=== PATIENT | female | born 1995 | race Caucasian/White ===

== ENCOUNTER 2018-05-29 15:15 | Inpatient (IN) | payer OTHER ==
[~2018-05-29] VITALS: Ht 154.9 cm; Wt 69.4 kg
[2018-05-29 15:29] VITALS: BP 123/79
[2018-05-29] MEDS ORDERED: CELEXA10 MG PO (15:32)
[2018-05-29 15:41] LABS: URINE BLOOD 1+ (Negative); URINE CLARITY CLEAR; URINE COLOR YELLOW; URINE GLUCOSE-RANDOM NEGATIVE (Negative); URINE KETONES NEGATIVE (Negative); URINE LEUKOCYTES-REFLEX TRACE (Negative); URINE NITRITE-REFLEX NEGATIVE (Negative); URINE PROTEIN NEGATIVE (Negative); URINE SPECIFIC GRAVITY 1.025 (1.005-1.030)
[2018-05-29 15:43] LABS: ICTOTEST (BILI CONFIRMATORY) Negative (Negative); URINE BILIRUBIN 1+ (Negative)
[2018-05-29 15:45] LABS: MUCUS 4-6 Moderate strn/LPF (None Seen); SQUAMOUS >10 Many /LPF (0-3); URINE WBC-REFLEX 0-5 Rare /HPF (0-5)
[2018-05-29 15:46] LABS: CASTS None Seen /LPF (None Seen); CRYSTALS None Seen /LPF (None Seen); URINE RBC 0-2 Rare /HPF (0-2)
[2018-05-29 15:52] LABS: HEMATOCRIT 40.3 % (37.0-47.0); HEMOGLOBIN 13.5 gm/dL (12.0-15.0); MCH 27.2 pg (26.0-34.0); MCHC 33.6 g/dL (28.0-37.0); MCV 81.1 fL (80.0-100.0); MPV 9.4 fl. (7.2-11.1); NUCLEATED RBCS 0 /100WBC; PLATELET COUNT* 216 thou/uL (150-400); RBC 4.97 mil/uL (4.20-5.00); RDW-CV 15.1 % (10.5-14.5)
[2018-05-29 16:14] LABS: ABSOLUTE LYMPHOCYTES 0.4 thou/uL (0.8-5.3); ABSOLUTE MONOCYTES 0.5 thou/uL (0.0-1.2); ABSOLUTE NEUTROPHILS 8.2 thou/uL (1.6-8.1)
[2018-05-29 16:15] LABS: CALCIUM 8.8 mg/dL (8.5-10.1); CREATININE 0.8 mg/dL (0.6-1.3); POTASSIUM 3.5 mmol/L (3.5-5.1); TOTAL BILIRUBIN 0.6 mg/dL (<0.1-1.0); TOTAL PROTEIN 7.9 g/dL (6.4-8.2)
[2018-05-29 16:16] LABS: LARGE PLATELETS OCCASIONAL; PLATELET ESTIMATE ADEQUATE
[2018-05-29 19:47] LABS: AMP/METHAMP Negative (Negative); BARBITURATES Negative (Negative); BENZODIAZEPINES Negative (Negative); COCAINE Negative (Negative); METHADONE Negative (Negative); OPIATES Negative (Negative); PCP Negative (Negative); THC Negative (Negative)
[2018-05-29 20:07] VITALS: BP 138/84
[2018-05-30 04:07] LABS: ABSOLUTE EOSINOPHILS 0.1 thou/uL (0.0-0.7); ABSOLUTE LYMPHOCYTES 0.9 thou/uL (0.8-5.3); ABSOLUTE MONOCYTES 0.6 thou/uL (0.0-1.2); ABSOLUTE NEUTROPHILS 4.4 thou/uL (1.6-8.1); BASOPHILS 0.2 %; EOSINOPHILS 0.9 %; HEMATOCRIT 36.5 % (37.0-47.0); HEMOGLOBIN 11.8 gm/dL (12.0-15.0); LYMPHOCYTES 15.2 %; MCH 26.7 pg (26.0-34.0); MCHC 32.4 g/dL (28.0-37.0); MCV 82.4 fL (80.0-100.0); MONOCYTES 9.8 %; MPV 10.1 fl. (7.2-11.1); NUCLEATED RBCS 0 /100WBC; PLATELET COUNT* 186 thou/uL (150-400); POLYS 73.9 %; RBC 4.43 mil/uL (4.20-5.00); RDW-CV 14.8 % (10.5-14.5); WBC 5.9 thou/uL (4.0-11.0)
[2018-05-30 04:28] LABS: CALCIUM 7.7 mg/dL (8.5-10.1); CREATININE 0.7 mg/dL (0.6-1.3); MAGNESIUM 2.3 mg/dL (1.8-2.4); POTASSIUM 3.1 mmol/L (3.5-5.1)
[2018-05-30 11:15] VITALS: BP 116/65; BP 117/67; BP 118/70
[2018-05-30 13:40] VITALS: BP 116/65
[2018-05-30 18:21] VITALS: BP 116/65
== END 2018-05-30 15:45 | disposition home or self-care (01) | DRG 758 ==
LOC: M.ERS 15:15 → M.TBA-ER 18:03 → M.ORTHSURG 18:03
PROVIDERS: Nurse Practitioner Family; ADMIT Family Medicine
DX: N73.9 Female pelvic inflammatory disease, unspecified (principal); N39.0 Urinary tract infection, site not specified; F41.9 Anxiety disorder, unspecified; F32.9 Major depressive disorder, single episode, unspecified; F17.210 Nicotine dependence, cigarettes, uncomplicated; Z28.21 Immunization not carried out because of patient refusal; Z88.1 Allergy status to other antibiotic agents; Z88.0 Allergy status to penicillin; Z79.899 Other long term (current) drug therapy